=== PATIENT | male | born 1975 | race Asian ===

== ENCOUNTER 2017-02-06 11:53 | Emergency (ER) | payer BC, OTHER ==
[~2017-02-06] VITALS: Ht 170.2 cm; Wt 62.2 kg
[2017-02-06 11:59] VITALS: TEMP 36.6; Ht 170.2 cm; Wt 62.2 kg
[2017-02-06] MEDS ORDERED: LIDOCAINE/EPINEPHRINE 1% 20 ML VIAL ONE (12:14)
[2017-02-06] MEDS ORDERED: LIDOCAINE/EPINEPH/TETRACAINE 1 EA SYR EXT STA (12:50)
[2017-02-06] MEDS ORDERED: DIPHTHERIA/TETANUS/PERTUSSIS 0.5 ML SYR/VIAL IM. ONE (13:30)
[2017-02-06] MEDS ORDERED: CHOL1000 PO (14:08)
--- NOTE | 2017-02-06 14:16 | DIAGNOSTIC IMAGING REPORT ---
CT OF THE HEAD WITHOUT CONTRAST CLINICAL HISTORY: trauma to left forehead, lac, eval fracture, ICH COMPARISON STUDY: No previous studies for comparison. TECHNIQUE: Helical axial images of the head were obtained without IV contrast. Automated exposure control was utilized for the study. A dose lowering technique was utilized adhering to the principles of ALARA. FINDINGS: No acute intracranial hemorrhage, midline shift or mass effect is present. Ventricular system is normal with the exception of a cavum septum pellucidum. Basilar cisterns are patent. There are no extra-axial collections. Suarez-white differentiation is maintained. There is no calvarial fracture. There is a left forehead laceration. Globes are intact. There is no retrobulbar hematoma. IMPRESSION: 1. No acute intracranial findings. 2. Left forehead laceration. No calvarial fracture. Left globe intact. Electronically signed by: Maurice Deng M.D. 02/06/2017 2:15 PM Dictated Date/Time: 02/06/2017 2:12 PM
--- NOTE | 2017-02-06 14:20 | DIAGNOSTIC IMAGING REPORT ---
MAXILLOFACIAL CT WITHOUT CONTRAST CLINICAL HISTORY: trauma to left forehead, lac, eval fracture, ICH COMPARISON STUDY: None. TECHNIQUE: A maxillofacial CT was performed without IV contrast. Coronal and sagittal reformats were viewed. A dose lowering technique was utilized adhering to the principles of ALARA. FINDINGS: Note is made of a left forehead laceration. The left globe is intact and there is no retrobulbar hematoma. No acute facial fracture is identified. There is an old deformity of the right lamina papyracea. Orbital floors are intact. A mucous retention cyst within left maxillary sinus is noted. There is no upper cervical spine fracture. There is no skull base fracture. Alignment of the temporomandibular joints is anatomic. IMPRESSION: 1. No acute facial fracture. 2. Left forehead laceration. Left globe intact with no retrobulbar hematoma. Electronically signed by: Maurice Deng M.D. 02/06/2017 2:18 PM Dictated Date/Time: 02/06/2017 2:15 PM
[2017-02-06 14:24] VITALS: BP 116/76
--- NOTE | 2017-02-06 14:25 | EMERGENCY ROOM VISIT NOTE ---
ED Visit Note First contact with patient: 12:36 Chief Complaint: Facial Laceration History of Present Illness: This patient is a 42-year-old male who presents to the Emergency Department with his family by private vehicle for evaluation of their facial laceration. Patient sustained the laceration while playing basketball, states he collided with another player and thinks that he hit his head against their head. They report a moderate amount of bleeding initially. They report no loss of consciousness. Patient complains of a left-sided headache and pain behind his left eye. He denies any visual disturbance, nausea , vomiting, or neck pain. They have tried nothing for the pain, and states they came straight here. Patient rates his current discomfort as a 6/10. Patient denies any other injuries. Patient's Tetanus status is not currently up-to-date. Medications: Patient denies taking any medications daily. Allergies: No known medication allergies PMH: No significant past medical or surgical history. SHx: Lives at home with his family. He denies tobacco use. ROS: All pertinent positive and negative review of systems are appropriately documented in the History of Present Illness. Physical Exam: VITAL SIGNS - Vital signs and nursing notes were reviewed. GENERAL - Pleasant and cooperative. Communicates well with provider and answers questions appropriately. SKIN - There is a 3.5 cm horizontal lying laceration noted just below the left eyebrow. The edges gape apart with traction. There is minimal active bleeding appreciated. No deep structures including vessels, musculature, or bony structures are appreciated. HEAD - Normocephalic. No Lorenzo's Sign or Raccoon's Eyes. No depressed skull fractures palpable. EYES - PERRL with EOMI bilaterally. No tenderness of the globe. No hyphema. Without subconjunctival hemorrhage. Palpebral conjunctiva pink and moist with no injection. EARS - No deformities of external structures noted on gross examination bilaterally. No hemotympanum present. No tympanic perforation noted. NOSE -Midline and without cyanosis. No epistaxis or clear watery discharge noted. Septum midline without deviation. No septal hematoma noted. No overlying ecchymosis noted. MOUTH/OROPHARYNX - Without perioral cyanosis. Tongue midline with equal elevation of palate bilaterally. No blood noted in the oropharynx. No tonsillar hypertrophy, erythema, or exudates noted. No dental fractures noted. NECK -FROM assessed. No nuchal rigidity. No tenderness to palpation over the cervical spinous processes. No cervical paraspinal muscle tenderness noted. LUNGS - Chest wall symmetric without accessory muscle use, intercostals retractions, or central cyanosis. Normal vesicular breath sounds CTA B/L. No wheezes, rales, or rhonchi appreciated. CARDIAC - RRR with S1/S2. No murmur, rubs, or gallops appreciated. ABDOMEN - Abdominal contour normal without pulsations or visible masses. BS normoactive all four quadrants. EXTREMITIES -No gross deformities noted of the extremities. + 2 radial and dorsalis pedis pulses palpated throughout. FROM with no tremors, fasciculations , or clonus noted on PROM throughout. +5/5 strength noted in UE/LE bilaterally. NEUROLOGIC - Cranial nerves II through XII grossly intact. Sensory intact to light touch throughout. Patient able to perform rapid alternating movements appropriately. Negative Romberg and Pronator Drift. Normal gait observed. PSYCH - A&Ox3 and cooperates fully with examiner. Pt is very pleasant and interacts well with examiner. Imaging: MAXILLOFACIAL CT WITHOUT CONTRAST; HEAD CT WITHOUT CONTRAST CLINICAL HISTORY: trauma to left forehead, lac, eval fracture, ICH COMPARISON STUDY: None. TECHNIQUE: A maxillofacial CT was performed without IV contrast. Coronal and sagittal reformats were viewed. A dose lowering technique was utilized adhering to the principles of ALARA. FINDINGS: Note is made of a left forehead laceration. The left globe is intact and there is no retrobulbar hematoma. No acute facial fracture is identified. There is an old deformity of the right lamina papyracea. Orbital floors are intact. A mucous retention cyst within left maxillary sinus is noted. There is no upper cervical spine fracture. There is no skull base fracture. Alignment of the temporomandibular joints is anatomic. IMPRESSION: 1. No acute facial fracture. 2. Left forehead laceration. Left globe intact with no retrobulbar hematoma. ED Course: Patient was seen and evaluated by myself. Differential diagnosis includes laceration, contusion, abrasion, intracranial hemorrhage, skull fracture, orbital fracture, retro-orbital hematoma. Patient had no focal neurological deficits. Patient's exam is otherwise unremarkable. Patient complains of a headache and pain behind his left eye, therefore CT of the head and facial bones was ordered to evaluate for periorbital fracture or hematoma. CT reviewed , no acute abnormalities. Patient was updated on all results and verbalized understanding. Patient remains well appearing with a normal neurologic exam. Costs and benefits of performing primary wound closure versus no repair were discussed with the patient who verbalizes understanding. Verbal consent was obtained prior to performing the procedure. LET gel was used to anesthetize the left eyebrow laceration. After the wound was fully anesthetized, the wound was cleansed and prepped in the typical sterile fashion utilizing normal saline and Betadine. The wound was sterilely draped. Once proper anesthetization was established, the wound was further examined and demonstrated no changes from above, specifically no extension through the periosteum. The wound was copiously irrigated with normal saline and Betadine. The wound was closed using 7 simple, 6-0 Vicryl subcuticular sutures with the wound edges being well approximated. The skin was then closed using 3 layers of Dermabond, with good wound approximation and hemostasis achieved. Patient tolerated the procedure well. No complications were met. Patient received their Adacel vaccination. Patient educated on worrisome symptoms for return visit to the Emergency Department. Patient discharged to home in good condition. Current/Historical Medications Scheduled Cholecalciferol (Vitamin D3), 1 TAB PO DAILY Allergies Coded Allergies: POLLEN (Unverified Allergy, Unknown, , 02/06/17) Vital Signs Date Time Temp Pulse Resp B/P (MAP) Pulse Ox O2 Delivery O2 Flow Rate FiO2 02/06/17 15:09 71 16 100 02/06/17 14:24 85 18 116/76 98 Room Air 02/06/17 11:59 36.6 91 18 118/83 98 Room Air Medications Administered Medications (Trade) Dose Ordered Sig/Tristan Route Start Time Stop Time Status Last Admin Dose Admin Tetracaine/ Epinephrine/ Lidocaine (L.e.t. Gel 4%/ 1:100/0.5%) 2 ea UD STAT EXT 02/06/17 12:50 02/06/17 12:52 DC 02/06/17 13:00 2 EA Diphtheria/ Pertussis/Tetanus Vacc (Adacel Inj) 0.5 ml ONCE ONCE IM. 02/06/17 13:30 02/06/17 13:31 DC 02/06/17 13:30 0.5 ML Departure Information Impression Primary Impression: Laceration of left eyebrow without complication Dispostion Home / Self-Care Condition GOOD Referrals Rex Coleman M.D. (PCP) Patient Instructions ED Laceration Facial Skin Glue, My [facility] Additional Instructions Keep wound clean and dry. Do not apply any ointments, lotions, alcohol or peroxide to the glue, as this may cause it to break down prematurely. The glue should follow-up with the wound in the next 5-7 days naturally. Ice and elevate for swelling and pain. Keep covered when in sun until sutures removed then SPF 50 or higher for one year. Vitamin E oil if desired two weeks after suture removal for reduction of scar. Please seek immediate medical attention for any signs of infection (increasing redness, swelling, pus drainage, streaking up the arm, fever/chills). You may have a mild concussion. It is important to observe both physical and cognitive rest while recovering from a concussion. Physical rest includes no significant physical activity or exertion, heavy lifting over 10 pounds, and increasing sleep and nap times throughout the day as needed. Cognitive rest includes taking breaks from prolonged screen time including TV, tablets, phone, or prolonged periods of talking on the telephone or reading. You should relax in a quiet, dark place for the rest of the day. Avoid any possible triggers including: cigarette smoke, caffeine, nicotine, chocolate, wine, beer, loud noises or music, or bright lights. For pain control, you can use the following [id number] medicines (if >12 yo): - Regular strength (325mg/tab) Tylenol (acetaminophen) 2 tabs every 4-6 hours as needed. Do not exceed 10 tablets in a 24 hour period. Avoid taking more than 3000 mg of Tylenol per day. This includes any other sources of acetaminophen you may take on a regular basis. - Regular strength (200 mg/tab) Advil (ibuprofen) 2 tabs every 4-6 hours as needed. Do not exceed a dose of 3200 mg per day. Follow-up with your PCP in the next few days to be rechecked if you are still having symptoms of headaches. Please return to the ER for any worsening symptoms, including severe worsening headache, persistent vomiting, vision changes, dizziness or passing out, confusion, numbness or weakness on one side of the body, balance issues or difficulty walking, or any other concerns. Work Instructions Return To Work: 1 day Problem Qualifiers Primary Impression: Laceration of left eyebrow without complication Encounter type: initial encounter Qualified Codes: S01.112A - Laceration without foreign body of left eyelid and periocular area, initial encounter
[2017-02-06 15:09] VITALS: PULSE 71; O2SAT 100
== END 2017-02-06 15:11 | disposition home or self-care (01) ==
LOC: C.EDB 11:54 → C.EDD 15:11
DX: S01.112A Laceration without foreign body of left eyelid and periocular area, initial encounter (principal); W50.0XXA Accidental hit or strike by another person, initial encounter; Y93.67 Activity, basketball; R51 Headache; Z23 Encounter for immunization